=== PATIENT | male | born 1955 | race Caucasian/White ===

== ENCOUNTER → 2018-08-23 14:56 | Outpatient (CLI) | payer MEDICARE, SELFPAY ==
--- NOTE | 2018-08-23 15:03 | CT_ITS ---
STUDY: LOW DOSE CT LUNG CANCER SCREENING REASON FOR EXAM: Male, 63 years old. SMOKER 50 YRS 1 PPD, WEIGHT 160. HX OF IA / CABG RADIATION DOSAGE (If Supplied By Facility): CTDIvol = ( 2.55 ) mGy, DLP = ( 93.15 ) mGycm TECHNIQUE: No contrast was administered. Low dose technique was utilized (average mAS-38 and kVp 120). 1.25 mm axial source images with a slice interval of 1.25-mm were reconstructed in lung windows. 2.5 mm axial source images with a slice interval of 2.5-mm were reconstructed in lung windows. 5.0 mm axial source images with a slice interval of 5.0-mm were reconstructed in soft tissue windows. Nodule measured using lung windows on PACS and/or independent workstation with automated measurement of minimum and maximum diameter. Nodule measurement reported as average diameter rounded to the nearest whole number. Growth is defined as an increase ins size of greater than 1.5 mm. COMPARISON: None. NODULES: Hyperinflation is noted in both lungs suggesting COPD. Bronchial wall thickening is seen in the perihilar regions in both lungs suggesting chronic bronchitis. There is a subpleural nodule in the anterior segment of right lung upper lobe axial image #74 measures 4 mm most likely represent a scar. There is no demonstrated pleural abnormality. Normal heart and pericardium. Normal mediastinum. Normal hilar regions. Normal unenhanced pulmonary arteries. Normal aorta arch and descending thoracic aorta. Normal osseous structures. There is no demonstrated abnormality of the visualized upper abdomen. CT/Low Dose CT Lung Screening IMPRESSION: Lung-RADS category 2.COPD. There is a subpleural nodule in the anterior segment of right lung upper lobe axial image #74 measures 4 mm most likely represent a scar. Recommendation: Routine screening CT scan in one year. IMPORTANT NOTES FOR USE: ACR Lung-RADS Version 1.0 Assessment Categories Release Date: March 19, 2014 Category: Coded 0-4 bases on nodule(s) with highest degree of suspicion. Negative screen is defined as categories 1 and 2; a positive screen is defined as categories 3 and 4. Category 3 and 4A nodules that are unchanged on interval CT should be coded as category 2, and individuals returned to screening in 12 months. Category 4X: Category 3 or 4 nodules with additional imaging findings that increase the suspicion of lung cancer, such as spiculation, GGN that doubles in size in 1 year, enlarged lymph notes, etc. Category Modifiers: S (significant finding unrelated to lung cancer) and C (prior history of treated lung cancer) may be added to the 0-4 Lung-RADS Electronically Signed: Renate Carrizales MD at 13:32 EDT Tel , Service support ,
== END ==
PROVIDERS: Family Provider Preventive Medicine Occupational Medicine; PCP Preventive Medicine Occupational Medicine; Referring Provider Internal Medicine Pulmonary Disease; Visit Provider Internal Medicine Pulmonary Disease
DX: Z12.2 Encounter for screening for malignant neoplasm of respiratory organs (principal); Z87.891 Personal history of nicotine dependence
CPT/HCPCS: G0297

== ENCOUNTER → 2019-08-23 13:19 | Outpatient (CLI) | payer MEDICARE, SELFPAY ==
--- NOTE | 2019-08-23 13:25 | CT_ITS ---
STUDY: CT CHEST WITHOUT CONTRAST- LOW DOSE SCREENING PROTOCOL REASON FOR EXAM: Male, 64 years old. Current smoker. 50 pack per year history. No current symptoms of lung cancer or pulmonary infection. Shared decision-making with referring PCP documented in patient's record. RADIATION DOSAGE (If Supplied By Facility): CTDIvol = ( 3.02 ) mGy, DLP = ( 127.19 ) mGycm TECHNIQUE: Low dose screening CT examination performed from the base of the neck to the upper abdomen. Sagittal and coronal reformatted images performed. Sagittal and coronal MIP images provided. The measurements provided are average, rounded measurements per ACR guidelines. COMPARISON: 08/23/2018 FINDINGS: Status post median sternotomy. Mild emphysematous changes. Interval development of a 1 cm noncalcified nodule posterior right upper lobe the lungs on image 92 worrisome for bronchogenic carcinoma in correlation with PET CT scan is recommended. There is no demonstrated pleural abnormality. Normal heart and pericardium. There are calcifications of the coronary arteries. Normal mediastinum. Normal hilar regions. Normal unenhanced pulmonary arteries. There is atherosclerotic calcification of the aortic arch with tortuosity and elongation of the aortic arch and descending thoracic aorta. Multiple healed left rib fractures. There is no demonstrated abnormality of the visualized upper abdomen. CT/Low Dose CT Lung Screening IMPRESSION: 1. Mild emphysema with a new 1 cm noncalcified right upper lobe nodule worrisome for bronchial carcinoma in correlation with PET CT scan is recommended.. 2. Incidental findings include multiple healed left rib fractures.. ASSESSMENT CATEGORY: LungRADS 4A - Suspicious. Recommend follow up LDCT in 3 months. PET/CT may be used if there is an 8 mm or larger solid component. Electronically Signed: Danyel Cha MD at 13:47 EDT Tel , Service support ,
== END ==
PROVIDERS: Family Provider Preventive Medicine Occupational Medicine; PCP Preventive Medicine Occupational Medicine; Referring Provider Internal Medicine Pulmonary Disease; Visit Provider Internal Medicine Pulmonary Disease
DX: Z12.2 Encounter for screening for malignant neoplasm of respiratory organs (principal); Z87.891 Personal history of nicotine dependence
CPT/HCPCS: G0297

== ENCOUNTER → 2019-10-30 08:04 | Outpatient (CLI) | payer MEDICARE, SELFPAY ==
--- NOTE | 2019-10-30 08:00 | PET_ITS ---
EXAMINATION: FDG PET CT INDICATIONS: A 64-year-old male with history of pulmonary nodularity. COMPARISON EXAMINATION: CT of the chest report dated 08/23/19. INDEX LESION SIZE SUV INTERPRETATION Right upper posterior lung zone-right upper lobe 11.3 mm (frame 237) 2.5 Fulfills quantitative criteria for viable neoplasm, histopathologic analysis recommended NON-INDEX LESION SIZE SUV INTERPRETATION Right lower posterolateral chest wall eleventh rib 5.0 (max) Most consistent with trauma-fracture, correlation with plain film radiography may be of benefit TECHNIQUE: Following the intravenous administration of 15.94 mCi of F-18 deoxyglucose via the left antecubital fossa, multiplanar image acquisitions of the neck, chest, abdomen and pelvis to level of mid thigh, obtained at one hour post radiopharmaceutical administration contemporaneously interpreted with the current CT of the neck, chest, abdomen and pelvis to level of mid thigh, dated 10/30/[address] of the chest report dated 08/23/19 reveal: SERUM GLUCOSE LEVEL: 100 mg/dl. HEIGHT: 71 inches. WEIGHT: 165 lbs. FINDINGS: 1. Focal increased glucose metabolism is identified in the right upper posterior lung-posterior segment of the right upper lobe generating a calculated maximum standard uptake value of 2.5. The maximal axial diameter of the corresponding parenchymal density on review of CT of the chest dated 10/30/19 is 11.3 mm. 2. There is focal increased radiopharmaceutical concentration demonstrated in the right posterolateral chest wall contiguous to the eleventh rib rending a calculated maximum standard uptake value of 5.0. 3. Normal physiologic distribution of the radiopharmaceutical is apparent in the hepatic (2.0) and splenic parenchyma, both renal units, bladder and visualized intestinal tract. There is uniform distribution of the radiopharmaceutical concentration defined in the visualized cerebellar hemispheres and cerebral cortical structures.? Diffuse intestinal tract activity is noted throughout all four quadrants of the abdominal-pelvic retroperitoneum, mesentery consistent with normal physiologic distribution of the radiopharmaceutical. Prominent radiopharmaceutical concentration is defined in the skeletal musculature and left ventricular myocardium, bilateral hemidiaphragms and right-left diaphragmatic crura consistent with the pattern associated with failure to fast. (Arturo and Shivani, Journal of Nuclear Medicine Technology 31:3, 2003). Pertinent CT findings are as follows. CHEST: There is evidence of prior median sternotomy. Atherosclerotic calcification is defined in the thoracic aorta without evidence of dilatation, aneurysm formation. Coronary arterial calcification is observed. Bilateral subcentimeter axillary soft tissue densities are ametabolic. Scattered mediastinal soft tissue reveals no evidence of facilitated FDG uptake. Emphysematous changes are noted in the bilateral upper-mid lung zones. ABDOMEN AND PELVIS: Atherosclerotic calcification is defined in the abdominal aorta without evidence of dilatation, aneurysm formation. Abdominal-pelvic arterial calcification is observed. Calcifications are defined in the bilateral renal units. A small fat-containing left inguinal hernia is noted. Right-left subcentimeter inguinal soft tissue reveals no evidence of increased glucose avidity. Dystrophic calcification is manifest within the prostate gland without evidence of facilitated radiopharmaceutical concentration. SKELETAL: Degenerative changes defined in the cervical, thoracic and lumbar spine demonstrate no evidence for glucose hypermetabolism. Diffuse demineralization is noted. PET/PET/CT Tumor Base -Thigh Init IMPRESSION: 1. Increased glucose concentration observed in the right upper-mid posterior lung-right upper lobe fulfills quantitative criteria for viable neoplasm. Histopathologic analysis is recommended. (Valera et al, Annals of Internal Medicine, 138:724, 2003). 2. Facilitated tracer uptake identified in the right lower posterolateral chest wall, eleventh rib likely represents activated leukocytes associated trauma-fracture. Correlation with dedicated plain film radiography may be of benefit for further evaluation. 3. No other quantitatively significant hypermetabolic abnormalities are noted. Electronic Signature Danyel Cruz D.O. Electronically Signed: Danyel Cruz DO at 23:13 EST Tel , Service support ,
== END ==
PROVIDERS: Family Provider Preventive Medicine Occupational Medicine; PCP Preventive Medicine Occupational Medicine; Referring Provider Internal Medicine Pulmonary Disease; Visit Provider Internal Medicine Pulmonary Disease
DX: R91.1 Solitary pulmonary nodule (principal)
CPT/HCPCS: 78815; A9552

== ENCOUNTER → 2019-11-07 15:11 | Outpatient (CLI) | payer MEDICARE, SELFPAY ==
--- NOTE | 2019-11-07 15:15 | RAD_ITS ---
HISTORY: No rib pain. Right-sided 11th rib possible fracture. Chill upon PET scan. Exam is frontal view of the chest, and 4 views of the right ribs. Comparison imaging is a PET/CT from October 30, 2019. It is a posterior lateral right 11th rib Findings: The right posterior 11th rib is normal. No expansile lesion or fracture is perceived. No rib fractures are identified. Sternal wires. Cardiac pacer leads. Emphysema. Many healed left posterior rib fractures. These are better demonstrated on the CT from October 30, 2019. The heart is not enlarged. Atherosclerotic plaque within the aortic arch was better demonstrated on the CT. RAD/Ribs Uni Min 3V w/PA Chest IMPRESSION: Normal right 11th rib. No rib fracture perceived. at 0433 Reported and signed by: Henrry Antonio MD Electronically Signed: Henrry Antonio MD at 4:32 EST Tel , Service support ,
[2019-11-07 17:58] LABS: BUN 20 mg/dL (7-18); Creatinine, Serum 1.23 mg/dL (0.70-1.30); EST Glomerular Filtration Rate 63 mL/min (>60); Est Glom Filt Rate - Afr Amer 76 mL/min (>60); PSA,Total - Annual Screen 2.61 ng/mL (0.00-4.00)
[2019-11-09 14:04] LABS: Carcinoembryonic Antigen 4.8 ng/mL (0.0-4.7)
== END ==
PROVIDERS: Family Provider Preventive Medicine Occupational Medicine; PCP Preventive Medicine Occupational Medicine; Referring Provider Internal Medicine Pulmonary Disease; Visit Provider Internal Medicine Pulmonary Disease
DX: J44.9 Chronic obstructive pulmonary disease, unspecified (principal); C34.90 Malignant neoplasm of unspecified part of unspecified bronchus or lung; R91.1 Solitary pulmonary nodule; Z12.5 Encounter for screening for malignant neoplasm of prostate
CPT/HCPCS: 36415; 71101; 82378; 82565; 84153; 84520; G0103

== ENCOUNTER 2021-01-28 06:15 | Outpatient (RCR) | payer MEDICARE, SELFPAY ==
[2021-01-28] MEDS: COVID-19 VACC, MRNA(PFIZER)/PF 30 MCG/0.3 ML SYRINGE IM (14:59)
[2021-02-18] MEDS: COVID-19 VACC, MRNA(PFIZER)/PF 30 MCG/0.3 ML SYRINGE IM (14:45)
== END 2021-04-29 23:59 ==
LOC: IMMUN 06:15
PROVIDERS: PCP Preventive Medicine Occupational Medicine; Referring Provider Family Medicine; Visit Provider Family Medicine
DX: Z23 Encounter for immunization (principal)
CPT/HCPCS: 0001A; 0002A; 91300